=== PATIENT | female | born 1950 | race Caucasian/White ===

== ENCOUNTER 2022-05-24 09:47 | Day surgery (SDC) | payer MEDICARE ==
[2022-05-24] MEDS ORDERED: BUPIVACAINE 0.5% VIAL IJ ONE (09:48)
[2022-05-24] MEDS ORDERED: XYLOCAINE-MPF 1% 5ML SDV IJ ONE (09:48)
[2022-05-24] MEDS ORDERED: Depo-Medrol 40 MG/ML IM ONE (09:48)
[2022-05-24] MEDS ORDERED: DIPRIVAN 200 MG/20 ML IV ONE (11:57)
[2022-05-24] MEDS ORDERED: Ketamine HCl 50 MG/ML ONE (12:22)
--- NOTE | 2022-05-24 14:03 | XRAY ---
Indication: Left hip and greater trochanter bursa injection. Intraoperative fluoroscopy provided for 44 seconds. 2 digital spot images submitted for interpretation demonstrates needle tip projecting lateral to left femur neck. Second needle tip lateral to greater trochanter. Small amount of contrast injected for both needle tip placement. Correlate with intraoperative findings/report.
[2022-05-24] MEDS ORDERED: Lactated Ringers 1,000 ML IV ONE (16:30)
--- NOTE | 2022-05-24 16:44 | XRAY ---
44 seconds of fluoroscopy was used in surgery for a left intra-articular hip and greater trochanteric bursa injection.
== END 2022-05-24 12:45 | disposition home or self-care (01) ==
LOC: SDC-PAIN 09:47
PROVIDERS: ATTEND Psychiatry & Neurology Pain Medicine
DX: M16.12 Unilateral primary osteoarthritis, left hip (principal); E11.9 Type 2 diabetes mellitus without complications; Z79.899 Other long term (current) drug therapy
CPT/HCPCS: 20610; 73502; 77002; 82947; J1030; J2704

== ENCOUNTER 2022-08-02 10:12 | Day surgery (SDC) | payer MEDICARE ==
[2022-08-02] MEDS ORDERED: LIDOCAINE HCL 2% 100 MG/5 ML IJ ONE (10:13)
[2022-08-02] MEDS ORDERED: DIPRIVAN 200 MG/20 ML IV ONE (12:48)
[2022-08-02] MEDS ORDERED: Lactated Ringers 1,000 ML IV ONE (13:30)
--- NOTE | 2022-08-02 14:16 | XRAY ---
Indication: Bilateral L4-S1 MBB. Intraoperative fluoroscopy provided for 13 seconds. Single digital spot image submitted for interpretation demonstrates posterior needle tips projecting over the expected left and right L4-S1 nerve roots. Correlate with intraoperative findings/report.
--- NOTE | 2022-08-02 14:18 | XRAY ---
13 seconds of fluoroscopy was used in surgery for a bilateral L4-S1 MBB.
== END 2022-08-02 13:23 | disposition home or self-care (01) ==
LOC: SDC-PAIN 10:12
PROVIDERS: ATTEND Psychiatry & Neurology Pain Medicine
DX: M47.816 Spondylosis without myelopathy or radiculopathy, lumbar region (principal); E11.9 Type 2 diabetes mellitus without complications; Z79.899 Other long term (current) drug therapy
CPT/HCPCS: 64493; 64494; 72020; 77002; 82947; J2704